=== PATIENT | male | born 1990 | race American Indian/Alaskan Native ===

== ENCOUNTER 2016-10-23 00:59 | Emergency (ER) | payer OTHER ==
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
[2016-10-23 13:07] VITALS: BP 139/73
== END 2016-10-23 13:08 | disposition home or self-care (01) ==
LOC: ED 00:59
DX: M79.601 Pain in right arm (principal); M54.2 Cervicalgia; M54.5 Low back pain; V49.59XA Passenger injured in collision with other motor vehicles in traffic accident, initial encounter; X58.XXXA Exposure to other specified factors, initial encounter; Y93.9 Activity, unspecified; Y92.9 Unspecified place or not applicable; Y99.9 Unspecified external cause status
CPT/HCPCS: 71010; 72100; 72125; 99284